=== PATIENT | female | born 1965 | race Caucasian/White ===

== ENCOUNTER → 2018-12-23 | Outpatient (CLI) | payer OTHER ==
[~2018-12-23] VITALS: Ht 167.6 cm; Wt 68.0 kg
[~2018-12-23] MED LIST: MULTIVITAMINS1 EAC7 PO; VITAMIN C500 M1 PO
--- NOTE | 2018-12-26 12:48 | P ---
[facility] [place] [address] PROCEDURE REPORT Name: GregoryCAESARHANY,ENEIDA PRETTY Room #: REG LUCIANA Grayson#: [id number] Admission: 12/23/18 Attend Phys: Juan Abbott Discharge: Date of : 63 Report #: [id number] THIS REPORT FOR: //name// CC: Juan Holt MD DATE OF SERVICE: 12/23/2018 PROCEDURE PERFORMED: Upper endoscopy. HISTORY OF PRESENT ILLNESS: The patient is a 53-year-old female with a history of chronic cough. She has had an extensive workup, etiology has been unclear. She has tried multiple different regimens without any improvement. It was thought to be possibly related to reflux, for a period of time she was on PPI therapy as well as Reglan, but no improvement. We discussed her symptoms in the office in July of this year. Since August, she stopped her medications as far as her PPI and Reglan. She denies any change in her cough. She denies any dysphagia. No previous history of upper endoscopy. DESCRIPTION OF PROCEDURE: The risks and benefits of the procedure were explained to the patient, those risks including but not limited to bleeding, perforation, the risk of sedation. She understood these risks and gave informed consent. Sedation was given using propofol per anesthesia. Next, using a standard Olympus upper endoscope, the scope was placed in the patient's mouth and advanced under direct vision through the esophagus, stomach and into the second portion of the duodenum. The larynx was normal. The esophagus was normal throughout. The GE junction was normal. No evidence of esophagitis. Upon entering the stomach, a small hiatal hernia was noted. Overall, the gastric mucosa was normal. The pylorus was normal and patent. The duodenal bulb, first and second portion were all normal. The scope was then withdrawn and the procedure terminated. The patient tolerated the procedure well. IMPRESSION: 1. Small hiatal hernia. 2. Otherwise, normal upper endoscopy. RECOMMENDATIONS: Etiology of chronic cough is unclear. The patient has tried both PPI therapy as well as promotility agent Reglan without any improvement in her cough. She has no evidence of esophagitis. I do not think she needs to continue PPI therapy long-term as this has not been helpful and there was no evidence of esophagitis. [address] [address] PROCEDURE REPORT Name: ENEIDA ROBERTS PRETTY Room #: REG LUCIANA Grayson#: [id number] Admission: 12/23/18 Attend Phys: Juan Abbott Discharge: Date of : 63 Report #: [id number] Thank you for allowing me to participate in her care. <ELECTRONICALLY SIGNED> By: Juan Topete MD 12/26/18 [id number] Juan Topete MD /nt
== END | disposition home or self-care (01) ==
LOC: GI 08:58
DX: R05 Cough (principal); K44.9 Diaphragmatic hernia without obstruction or gangrene; Z85.828 Personal history of other malignant neoplasm of skin; Z98.890 Other specified postprocedural states; Z79.899 Other long term (current) drug therapy; Z88.2 Allergy status to sulfonamides
CPT/HCPCS: 62110; 62900